=== PATIENT | female | born 1940 | race Caucasian/White ===

== ENCOUNTER 2017-02-11 08:54 | Day surgery (SDC) | payer OTHER ==
[2017-02-09 11:20] LABS: BUN (BLOOD UREA NITROGEN) 9 MG/DL (6-23); CALCIUM, SERUM 9.1 MG/DL (8.5-10.4); CHLORIDE, SERUM 104 MMOL/L (96-112); CO2 (CARBON DIOXIDE) 28 MMOL/L (24-34); CREATININE 0.83 MG/DL (0.55-1.02); GFR AFRICAN AMERICAN 80 ML/MIN (>=60); GFR NON AFRICAN AMERICAN 69 ML/MIN (>=60); GLUCOSE, SERUM 179 MG/DL (60-99); SODIUM, SERUM 141 MMOL/L (135-148)
[2017-02-09 11:41] LABS: BASOPHILS 0.3 %; BASOPHILS ABSOLUTE 0.03 10/3/uL (0.0-0.16); EOSINOPHILS 0.6 %; EOSINOPHILS ABSOLUTE 0.05 10/3/uL (0.0-0.53); HEMATOCRIT 37.1 % (36.0-48.0); HEMOGLOBIN 12.7 g/dL (12.0-16.0); IMMATURE GRANULOCYTES 0.3 %; IMMATURE GRANULOCYTES ABSOLUTE 0.03 10/3/uL (0.0-0.11); LYMPHOCYTES 29.9 %; LYMPHOCYTES ABSOLUTE 2.71 10/3/uL (0.67-4.30); MANUAL DIFF NO %; MEAN CORPUS HGB CONC 34.2 g/dL (32.0-36.0); MEAN CORPUSCULAR HEMOGLOB 29.2 pg (26.0-34.0); MEAN CORPUSCULAR VOLUME 85.3 fL (80-100); MEAN PLATELET VOLUME 9.5 fL (9.2-13.0); MONOCYTES 8.7 %; MONOCYTES ABSOLUTE 0.79 10/3/uL (0.21-1.20); NEUTROPHILS 60.2 %; NEUTROPHILS ABSOLUTE 5.45 10/3/uL (2.02-8.40); PLATELET COUNT 352 10/3/uL (150-400); RBC DISTRIBUTION WIDTH 13.5 % (12.0-16.0); RED CELL COUNT 4.35 10/6/uL (4.0-5.6); WHITE BLOOD CELLS 9.1 10/3/uL (4.5-10.5)
--- NOTE | ~2017-02-11 | OP ---
Record Of Operation [facility] [address] [place]. [address] NAME: SILVIA SPEARS : 42 STATUS : [facility]#: [id number] AGE: 76 ADM/REG DATE : 02/11/17 MR#: [id number] REPORT SERV DATE: 02/13/17 DICTATED BY: JACK YADAV DATE: 02/12/17 REPORT STATUS : Draft TRANSCRIBED BY: MODL DATE: 02/12/17 DATE OF PROCEDURE: 02/11/2017 PREOPERATIVE DIAGNOSIS: Retained vaginal suture. POSTOPERATIVE DIAGNOSIS: Retained vaginal suture. PROCEDURE: Exam under anesthesia with removal of foreign object under general anesthesia from the vagina. CPT code 58159. SURGEON: Jack Yadav MD. ANESTHESIA: General. FINDINGS: Suture material embedded in the vaginal wall at the apex. This was removed using sharp dissection. Pathology retained vaginal suture. COMPLICATIONS: None. POSTOPERATIVE PLAN: Extubated to PACU. INDICATIONS FOR PROCEDURE: Ms. Spears is a delightful 76-year-old female, who had a surgical procedure on her vagina over twenty years ago. She is unsure of the details what the procedure actually was. She began having some vaginal irritation and pain, and was sent to my office for evaluation, and several strands of the suture were able to be removed in the office, but one of the strands was deeply embedded into the vagina, requiring exam under anesthesia with removal in the operating room. PROCEDURE IN DETAIL: After informed consent was signed, the patient was taken to the operating room and placed in dorsal supine position, where adequate general anesthesia was administered. She was then placed in dorsal lithotomy position in Chevy stirrups and prepped and draped in usual fashion, and a Ambriz catheter was placed. Speculum examination revealed the retained area of suture. The suture was then grasped and the knot was identified and pulled away from the vaginal wall. A small portion of the vaginal wall needed to be incised to gain access to the loop of suture that was in there and once this was transected with scissors, the entire retained suture was able to be removed without difficulty. Excellent hemostasis was noted. This concluded the procedure. The patient was placed back in dorsal supine position, awakened, extubated, and sent to the PACU in stable condition. KYRA/CRISS Jack Yadav MD Record Of Operation [facility] [address] [place]. [address] NAME: SILVIA SPEARS : 42 STATUS : [facility] PAT#: [id number] AGE: 76 ADM/REG DATE : 02/11/17 MR#: [id number] REPORT SERV DATE: 02/13/17 DICTATED BY: JACK YADAV DATE: 02/12/17 REPORT STATUS : Draft TRANSCRIBED BY: CRISS DATE: 02/12/17 / [id number] CC: MD Peewee Cuenca M.D.
[~2017-02-11 08:54] MED LIST: ACID REFLEX MED; AMARYL4 PO; CINNAMONPO PO; CLARIT10 PO; COLESTIPOL1 GM PO; FISH OIL PO; GLUCOPHAGE1000 MG PO; GLUCPH PO; LOM PO; MULTIPLE VIT PO; PAX10 PO; POTASSIUM PO; PRILO PO; SLEEP AIDE; VITAMIN B-12 PO
== END 2017-02-11 13:49 | disposition home or self-care (01) ==
LOC: SDC 08:54
PROVIDERS: Obstetrics & Gynecology Gynecology
PROC: 0UCG0ZZ Extirpation of Matter from Vagina, Open Approach (ICD-10-PCS; principal; 2017-02-11 10:00)
DX: T19.2XXA Foreign body in vulva and vagina, initial encounter (principal); E11.9 Type 2 diabetes mellitus without complications; K21.9 Gastro-esophageal reflux disease without esophagitis; Z90.710 Acquired absence of both cervix and uterus; Z98.51 Tubal ligation status; Z90.49 Acquired absence of other specified parts of digestive tract; Z98.890 Other specified postprocedural states; G47.33 Obstructive sleep apnea (adult) (pediatric); Z88.5 Allergy status to narcotic agent; Z88.8 Allergy status to other drugs, medicaments and biological substances
CPT/HCPCS: 80048; 82962; 85025; 87070; 87075; 87077; 87186; 87205; 93005; J0690; J1885